=== PATIENT | female | born 1950 ===

== ENCOUNTER 2019-08-09 13:20 | Outpatient (CLI) | payer MEDICARE, OTHER ==
[~2019-08-09 13:20] MED LIST: ASPI-496 PO; CARV3.1212 PO; EMPA10TA PO; GLIP5TAB10 PO; LEVO100T5 PO; LOSA25TA25 PO; SPIR25TA5 PO
== END 2019-08-09 23:59 | disposition home or self-care (01) ==
LOC: CFH 13:20
PROVIDERS: ATTEND Physician Assistant Medical
DX: I42.9 Cardiomyopathy, unspecified (principal); Z95.810 Presence of automatic (implantable) cardiac defibrillator; M47.9 Spondylosis, unspecified; M41.85 Other forms of scoliosis, thoracolumbar region; I10 Essential (primary) hypertension
CPT/HCPCS: 71046

== ENCOUNTER 2019-12-13 07:47 | Outpatient (CLI) | payer MEDICARE, OTHER | END 2019-12-13 23:59 | disposition home or self-care (01) | LOC: CFH 07:47 | PROVIDERS: ATTEND Internal Medicine Cardiovascular Disease | DX: I11.9 Hypertensive heart disease without heart failure (principal); I42.9 Cardiomyopathy, unspecified | CPT/HCPCS: 93306 ==

== ENCOUNTER → 2020-10-13 | Outpatient (CLI) | payer MEDICARE, OTHER ==
[~2020-10-13] MED LIST changes: +PANT40TA3 PO; +PANT40TA6 PO
== END | disposition home or self-care (01) ==
LOC: CFH 10:57
PROVIDERS: ATTEND Internal Medicine Cardiovascular Disease
DX: I36.1 Nonrheumatic tricuspid (valve) insufficiency (principal); I42.9 Cardiomyopathy, unspecified; I10 Essential (primary) hypertension
CPT/HCPCS: 93306